=== PATIENT | male | born 1990 | race African-American/Black ===

== ENCOUNTER 2016-12-14 14:02 | Emergency (ER) | payer SELFPAY ==
[2016-12-14] MEDS ORDERED: ISOVUE-370 76%-LOCM 1 ML ONE (14:12)
[2016-12-14] MEDS ORDERED: Ondansetron HCl/PF 4 MG/2 ML Vial ONE (14:24)
[2016-12-14] MEDS ORDERED: Fentanyl 100 MCG/2 ML VIAL ONE (14:24)
[2016-12-14 14:43] LABS: Bilirubin Negative (Negative); Blood, Urine Negative (Negative); Glucose, Urine (Dipstick) Negative (Negative); Ketone, Urine Negative (Negative); Nitrite Negative (Negative); Protein, Urine (Dipstick) Negative (Neg-Trace); Urobilinogen 0.2 mg/dL (0.2-1.0)
[2016-12-14 14:46] LABS: #Basophils 0.2 thou/uL (0.0-0.2); #Eosinphils 0.1 thou/uL (0.0-0.7); #Lymphocytes 3.6 thou/uL (1.20-3.40); #Monocytes 0.6 thou/uL (0.11-0.59); #Neutrophils 4.9 thou/uL (1.40-6.50); %Basophils 1.7 % (0.0-1.0); %Lymphocytes 38.9 % (21.0-51.0); %Monocytes 5.8 % (0.0-10.0); Red Blood Cell (RBC) Count 4.82 mill/uL (4.70-6.10); White Blood Cell (WBC) Count 9.4 thou/uL (4.8-10.8)
[2016-12-14 15:06] LABS: CK (CPK) 594 U/L (30-200)
[2016-12-14 15:06] LABS: ALT (SGPT) 15 U/L (8-55); AST (SGOT) 28 U/L (5-34); Alkaline Phosphatase 87 U/L (40-150); Anion Gap 16 mmol/L (10-20); BUN (Urea Nitrogen) 16 mg/dL (8.9-20.6); Bilirubin, Total 1.8 mg/dL (0.2-1.2); Calc. Creatinine Clearance 0 mL/min (70-130); Calcium 9.6 mg/dL (7.8-10.44); Carbon Dioxide 24 mmol/L (22-29); Chloride 102 mmol/L (98-107); Estimated GFR-MDRD Greater than 90; Globulin 3.3 g/dL (2.4-3.5); Lipase 30 U/L (8-78); Protein, Total 7.8 g/dL (6.0-8.3)
[2016-12-14 15:12] LABS: Troponin I Less than 0.010 ng/mL (< 0.028)
--- NOTE | 2016-12-14 16:10 | CT ---
CT ABDOMEN AND PELVIS WITH CONTRAST: Comparison: 06-06-16 History: Periumbilical abdominal pain with nausea and vomiting. Technique: Multiple contiguous axial images were obtained in a CT of the abdomen and pelvis with con trast. Coronal reformats were performed. FINDINGS: The liver, gallbladder, kidneys, adrenal glands, spleen, and pancreas are unremarkable. Bubbles of a ir surrounding the pancreas are felt to be within loops of bowel. No free air, free fluid, or strand ing changes seen in the abdomen or pelvis. Evaluation was limited as there is a paucity of intraabdo jesus fat. The large and small bowel are unremarkable. The appendix is not definitely seen. There is a structur e in the right lower quadrant of the abdomen which may represent a normal air filled appendix. No ab dominal or pelvic lymphadenopathy are seen. The visualized inferior thorax and abdominal wall soft tissues are unremarkable. The bones are unrem arkable. IMPRESSION: No evidence of acute intraabdominal/pelvic abnormality. POS: [facility]
--- NOTE | 2016-12-14 19:50 | ULT ---
RIGHT LOWER QUADRANT ULTRASOUND: 12/14/16 HISTORY: Periumbilical pain. FINDINGS: No fluid or fluid collection is seen in the right lower quadrant of the abdomen. There is significan t shadowing from bowel gas noted which limits evaluation. The appendix is not visualized on this exa m. IMPRESSION: Nonvisualization of the appendix, and as a result, appendicitis could not be excluded based on this exam. POS: [facility]
--- NOTE | 2016-12-14 20:28 | ULT ---
TESTICULAR ULTRASOUND: 12/14/16 HISTORY: Lower abdominal pain and bilateral testicular tenderness. FINDINGS: The right testicle measures 3.8 cm x 2.4 cm x 4.6 cm with the left testicle measuring 3.2 cm x 3 cm x 4.4 cm. There is a subtle area of altered echogenicity and suggestion of subtle decreased echogeni city with ill-defined margins seen in the mid portion of the right testicle. This area measures appr oximately 0.9 cm. The testicles otherwise demonstrate a normal appearance bilaterally without eviden ce of a testicular mass and homogeneous echotexture is otherwise visualized within each testicle. Doppler evaluation of each testicle with spectral analysis and color flow evaluation demonstrates ar terial flow. There is a small 0.5 cm anechoic structure in the right epididymis suggesting small epididymal cysts . The left epididymis is normal in appearance. There is a dilated tubular structure seen adjacent to the right testicle which is overall nonspecifi c. Multiple tubular structures are seen adjacent to the left testicle which are not dilated but do d emonstrate increased flow with Valsalva. Similar increased flow pattern is seen adjacent to the righ t testicle. No intra-abdominal or pelvic mass is seen on the recent CT scan exam. Findings are overa ll nonspecific, but very small bilateral varicoceles are a possibility. There is no evidence of a hydrocele. IMPRESSION: 1. Subtle subcentimeter area of altered echogenicity in the right testicle. While a testicular lesion or inflammatory change is a possibility, the exact etiology is uncertain, and followup testic ular ultrasound is recommended in 4 weeks for further evaluation of this area. 2. Normal appearing left testicle. 3. Normal flow is demonstrated in each testicle. 4. Suggestion of small bilateral hydroceles although the vessels are not particularly dilated a side from a single small vessel on the right. No intra-abdominal or pelvic mass is seen on recent CT scan exam. 5. Small right epididymal cyst. POS: [facility]
== END 2016-12-14 18:47 | disposition left against medical advice (07) ==
LOC: ERS 14:02
DX: R10.9 Unspecified abdominal pain (principal); J45.909 Unspecified asthma, uncomplicated; F31.9 Bipolar disorder, unspecified
CPT/HCPCS: 36415; 74177; 76705; 76870; 80053; 81003; 82553; 83605; 83690; 84484; 85025; 86140; 87086; 87491; 87591; 93976; 96361; 96374; 96375; J2405; J3010

== ENCOUNTER 2017-07-27 03:40 | Emergency (ER) | payer SELFPAY ==
[2017-07-27] MEDS ORDERED: Ketorolac Tromethamine 60 MG/2 ML VIAL ONE (04:08)
[2017-07-27] MEDS ORDERED: Bupivacaine 0.5% 10 ML VIAL ONE (04:10)
[2017-07-27] MEDS ORDERED: Ibuprofen 800 MG TAB ONE (04:10)
== END 2017-07-27 04:57 | disposition home or self-care (01) ==
LOC: ERS 03:40
DX: K05.10 Chronic gingivitis, plaque induced (principal); J45.909 Unspecified asthma, uncomplicated; F31.9 Bipolar disorder, unspecified
CPT/HCPCS: 96372; J1885; J3490

== ENCOUNTER 2017-08-14 20:11 | Emergency (ER) | payer SELFPAY | END 2017-08-14 21:41 | disposition home or self-care (01) | LOC: ERS 20:11 | DX: F41.9 Anxiety disorder, unspecified (principal); J45.909 Unspecified asthma, uncomplicated; F31.9 Bipolar disorder, unspecified; F17.210 Nicotine dependence, cigarettes, uncomplicated | CPT/HCPCS: 94640; 99406; J7620 ==

== ENCOUNTER 2018-04-07 21:03 | Emergency (ER) | payer SELFPAY ==
[2018-04-07] MEDS ORDERED: Adacel (T-DAP) 0.5 ML SYRINGE ONE (21:39)
[2018-04-07] MEDS ORDERED: Ibuprofen 200 MG TAB ONE (21:54)
[2018-04-07] MEDS ORDERED: Bacitracin Zinc 1 Packet ONE (21:54)
== END 2018-04-07 22:25 | disposition home or self-care (01) ==
LOC: ERS 21:03
DX: S51.051A Open bite, right elbow, initial encounter (principal); S81.052A Open bite, left knee, initial encounter; J45.909 Unspecified asthma, uncomplicated; F31.9 Bipolar disorder, unspecified; F17.210 Nicotine dependence, cigarettes, uncomplicated; W54.0XXA Bitten by dog, initial encounter
CPT/HCPCS: 90471; 90715

== ENCOUNTER 2018-06-01 07:06 | Emergency (ER) | payer SELFPAY ==
[2018-06-01] MEDS ORDERED: Dexamethasone 10 MG/ML VIAL ONE (08:09)
== END 2018-06-01 08:39 | disposition home or self-care (01) ==
LOC: ERS 07:06
DX: J45.901 Unspecified asthma with (acute) exacerbation (principal); F31.9 Bipolar disorder, unspecified; Z79.899 Other long term (current) drug therapy
CPT/HCPCS: 94640; J1100; J7620

== ENCOUNTER 2018-06-11 18:43 | Emergency (ER) | payer SELFPAY | END 2018-06-11 19:58 | disposition home or self-care (01) | LOC: ERS 18:43 | DX: K04.7 Periapical abscess without sinus (principal); K02.9 Dental caries, unspecified; J45.909 Unspecified asthma, uncomplicated; F17.210 Nicotine dependence, cigarettes, uncomplicated; F31.9 Bipolar disorder, unspecified | CPT/HCPCS: 99282 ==

== ENCOUNTER 2018-11-24 11:18 | Emergency (ER) | payer SELFPAY ==
[2018-11-24 11:50] LABS: #Basophils 0.1 thou/uL (0.0-0.2); #Eosinphils 0.1 thou/uL (0.0-0.7); #Lymphocytes 2.5 thou/uL (1.20-3.40); #Monocytes 0.5 thou/uL (0.11-0.59); #Neutrophils 3.4 thou/uL (1.40-6.50); %Basophils 0.9 % (0.0-1.0); %Eosinophils 2.3 % (0.0-10.0); %Lymphocytes 38.4 % (21.0-51.0); %Neutrophils 51.4 % (42.0-75.0); Hemoglobin 14.4 g/dL (14.0-18.0); Mean Corpuscular HGB CONC 33.8 g/dL (32.0-36.0); Mean Corpuscular Hemoglobin 31.3 pg (27.0-31.0); Mean Corpuscular Volume 92.6 fL (78.0-98.0); Mean Platelet Volume 6.8 fL (7.4-10.4); Platelet Count 224 thou/uL (130-400); RBC Distribution Width 11.3 % (11.5-14.5); White Blood Cell (WBC) Count 6.5 thou/uL (4.8-10.8)
--- NOTE | 2018-11-24 11:54 | RAD ---
EXAM: Two views chest PROVIDED CLINICAL HISTORY: Shortness of breath COMPARISON: 11/07/2011 FINDINGS: Cardiac and mediastinal silhouette appears within normal limits. Lungs appear free of significant opa city. No pleural fluid or pneumothorax apparent. IMPRESSION: No evidence for an acute cardiopulmonary process.
[2018-11-24 12:11] LABS: ALT (SGPT) 12 U/L (8-55); AST (SGOT) 24 U/L (5-34); Albumin 3.6 g/dL (3.5-5.0); Alkaline Phosphatase 87 U/L (40-150); Anion Gap 12 mmol/L (10-20); BUN (Urea Nitrogen) 9 mg/dL (8.9-20.6); Bilirubin, Total 0.6 mg/dL (0.2-1.2); Calc. Creatinine Clearance 0 mL/min (70-130); Calcium 8.7 mg/dL (7.8-10.44); Carbon Dioxide 22 mmol/L (22-29); Chloride 106 mmol/L (98-107); Estimated GFR-MDRD Greater than 90; Glucose 80 mg/dL (70-105); Potassium 3.6 mmol/L (3.5-5.1); Protein, Total 5.6 g/dL (6.0-8.3); Sodium 136 mmol/L (136-145)
== END 2018-11-24 13:43 | disposition home or self-care (01) ==
LOC: ERS 11:18
DX: R06.02 Shortness of breath (principal); J45.909 Unspecified asthma, uncomplicated; F31.9 Bipolar disorder, unspecified; F41.9 Anxiety disorder, unspecified; F17.210 Nicotine dependence, cigarettes, uncomplicated; Z79.51 Long term (current) use of inhaled steroids
CPT/HCPCS: 36415; 71046; 80053; 84484; 85025; 93005

== ENCOUNTER 2020-06-17 08:40 | Emergency (ER) | payer MEDICAID, OTHER, SELFPAY ==
[2020-06-17] MEDS ORDERED: Ketorolac Tromethamine 30 MG/ML VIAL ONE (09:32)
== END 2020-06-17 09:56 | disposition home or self-care (01) ==
LOC: ERS 08:40
DX: M62.830 Muscle spasm of back (principal); J45.909 Unspecified asthma, uncomplicated; F17.210 Nicotine dependence, cigarettes, uncomplicated; V49.9XXA Car occupant (driver) (passenger) injured in unspecified traffic accident, initial encounter
CPT/HCPCS: 96372; 99281; J1885

== ENCOUNTER 2020-07-22 09:58 | Emergency (ER) | payer MEDICAID, OTHER ==
[2020-07-22] MEDS ORDERED: Ketorolac Tromethamine 30 MG/ML VIAL ONE (13:45)
[2020-07-22] MEDS ORDERED: Acetaminophen 500 MG TAB ONE (13:45)
== END 2020-07-22 14:00 | disposition home or self-care (01) ==
LOC: ERS 09:58
DX: J02.9 Acute pharyngitis, unspecified (principal); F17.210 Nicotine dependence, cigarettes, uncomplicated; J45.909 Unspecified asthma, uncomplicated
CPT/HCPCS: 87081; 87430; 96372; 99283; J1885